=== PATIENT | male | born 1955 | race Caucasian/White ===

== ENCOUNTER 2023-09-02 11:23 | Emergency (ER) | payer BC, MEDICARE, SELFPAY ==
[2023-09-02 11:24] VITALS: BP 151/89
[2023-09-02 11:53] VITALS: BMI 28.9
--- NOTE | 2023-09-02 12:05 | EDRN ---
Patient stated that he missed a step while he was on a ladder and fell onto his right shoulder. +swelling. Decreased ROM. Denies hitting his head. Ice applied to site.
--- NOTE | 2023-09-02 13:32 | ED.GENMED ---
History of Present Illness
General
Chief Complaint: Fall
Source: patient
Exam Limitations: none
Time Seen by Provider: 09/02/23 11:50
Nursing documentation reviewed up to this point in time: agreed with
History of Present Illness
History of Present Illness:
67M coming in with concerns of right shoulder pain after a near ground level fall from the side of a ladder. No head injury, neck pain, LOC, numbness/weakness
Review of Systems
Review of Systems
Allergies reviewed?: Yes
All Other Systems: ROS reviewed and negative except as documented in HPI and ROS
Phy Exam
Physical Exam
Physical Exam:
Physical Exam
Physical Exam:
GENERAL: Alert , in no apparent distress
EYE: pupils equal and reactive
NECK: No redness or warmth No fluctuance or induration supple, no significant adenopathy.
ENT: o/p clr, mmm.
CARDIAC: Regular rate and rhythm .
LUNGS: Clear breath sounds bilaterally, no acute respiratory distress, no wheezes/rales/rhonchi
ABDOMEN: Soft, without focal tenderness, no r/g, no cvat
NEUROLOGICAL: Alert and oriented, no focal neuro deficits
SKIN: Warm and dry, skin intact.
MUSCULOSKELETAL: right shoulder pain swelling to AC joint area, good ROm of shoulder itselfwell perfused.
PSYCH: Normal and appropriate interaction.
Course
Orders/Labs/Results
Orders:
Orders
09/02/23 11:34
CR Clavicle - Right Complete Urgent
Comment:
Reason For Exam: fall
09/02/23 13:32
Sling Right-Treatment ONCE
Vital Signs
Initial and Last Documented VS:
Initial Vital Signs
Temp Pulse Resp BP Pulse Ox
97.5 F 65 16 151/89 95
09/02/23 11:24 09/02/23 11:24 09/02/23 11:24 09/02/23 11:24 09/02/23 11:24
Last Documented Vital Signs
Temp Pulse Resp BP Pulse Ox
97.5 F 65 16 151/89 95
09/02/23 11:24 09/02/23 11:24 09/02/23 11:24 09/02/23 11:24 09/02/23 11:24
MDM/Problems Addressed
MDM/Problems Addressed:
67M coming with concerns of right shoulder pain after fall. Pain to AC joint. no head injury or neck pain. Normal neuro exam, nvi to right arm. Xray without emergent findings. Placed in a sling. Dc to ortho. Return precautions given.
*Critical Care Note
Total Time (30-74mins, 75-104mins- exclusive of procedures): Not Applicable
ED Attending Note
-
Portions of this chart may have been created with voice recognition software.� Occasional wrong word or��sound alike� substitutions may have occurred due to the inherent limitations of voice recognition software.
Discharge Plan
Departure
Patient Disposition: Home (Routine Discharge)
Date of Disposition: 09/02/23
Time of Disposition: 13:38
Patient with high blood pressure during this ER visit?: No
Condition: Good
Covid-19: Not Applicable
Discharge Problem:
Injury of right acromioclavicular joint
Instructions: Shoulder Sprain (DC)
Referrals:
Desmond Whalen DO [Family Provider] -
Charlie Anderson MD [Active] - Follow up in 5-7 days
Activity Restrictions/Additional Instructions:
you came to ER for right shoulder pain. This is likely a sprain. Please wear the sling and follow up closely wioth ortho. Return for worsening, new or concerning symptoms.
Interventions
Interventions:
*Risk Screen - Suicide Last Done: 09/02/23 11:53
*General Assessment Last Done: 09/02/23 11:24
*Neglect/Abuse Screening Last Done: 09/02/23 11:53
ED- Fall Risk Assessment Last Done: 09/02/23 11:53
*ED COVID-19 Vaccine History Last Done: 09/02/23 11:29
ED-Musculoskeletal Assessment Last Done: 09/02/23 11:53
ED- Neurological Assessment Last Done: 09/02/23 11:53
ED-Skin Assessment Last Done: 09/02/23 11:53
Discharge Date and Time
Print Language: IRISH
[2023-09-02 13:55] VITALS: BP 153/98
--- NOTE | 2023-09-02 13:55 | EDRN ---
Reviewed discharge instructions with patient. Verbalized understanding. Ambulated with steady gait to the lobby.
[2023-09-02 13:56] VITALS: BP 153/98
== END 2023-09-02 13:57 | disposition home or self-care (01) ==
LOC: EMR 11:23
PROVIDERS: EMERGENCY PHYSICIAN Emergency Medicine; FAMILY PHYSICIAN Family Medicine
DX: S43.51XA Sprain of right acromioclavicular joint, initial encounter (principal); W11.XXXA Fall on and from ladder, initial encounter
CPT/HCPCS: 99283; 73000